=== PATIENT | female | born 1985 | race African-American/Black ===

== ENCOUNTER 2017-04-10 19:01 | Emergency (ER) | payer MEDICAID, OTHER ==
[~2017-04-10] VITALS: Ht 167.6 cm; Wt 73.0 kg
[2017-04-10] MEDS ORDERED: BALANCED SALT IRRIG SOLN 15ML IO ONE (22:00)
[2017-04-10] MEDS ORDERED: FLUORESCEIN SODIUM 1MG/STRIP OP ONE (22:00)
[2017-04-10] MEDS ORDERED: TETRACAINE 0.5% OPHTH DROPS 4ML OP ONE (22:00)
[2017-04-10] MEDS ORDERED: IBUPROFEN 600MG TABLET PO ONE (22:30)
[2017-04-10 22:31] VITALS: BP 112/70
== END 2017-04-10 22:40 | disposition home or self-care (01) ==
LOC: EDBD 19:01 → ER 20:27
DX: H57.8 Other specified disorders of eye and adnexa (principal); J45.909 Unspecified asthma, uncomplicated
CPT/HCPCS: 99283